=== PATIENT | male | born 1935 ===

== ENCOUNTER → 2017-02-04 | Outpatient (CLI) | payer MEDICARE, OTHER ==
[~2017-02-04] MED LIST: ALEVE220 MG PO; ASPIRIN LO-DOSE81 MG PO; CLARITIN10 MG PO; CORDARONE,PACE200 MG PO; ECOTRIN325 MG PO; FEOSOL325 MG PO; FLONASE 50 MCG/16 GM NOSE; FLUNISOLIDE25 ML NOSE; IMDUR60 MG PO; KLOR-CON 1010 MEQ PO; LASIX20 MG PO; LEVOTHROID (S100 MCG PO; LIPITOR80 MG PO; NORVASC2.5 MG PO; NORVASC5 MG PO; PLAVIX75 MG PO; PRADAXA150 MG PO; PRADAXA75 MG PO; PRILOSEC20 MG PO; RANEXA ER500 MG PO; THERAGRAN-M1 TAB PO; TYLENOL/COD#31 TAB PO; ULTRAM50 MG PO; VASOTEC2.5 MG PO; ZOCOR20 M1 PO
== END | disposition disaster alternative care site (69) ==
LOC: LCNC 09:11
DX: E03.9 Hypothyroidism, unspecified (principal)

== ENCOUNTER → 2017-02-13 | Emergency (ER) | payer MEDICARE, OTHER | END | disposition disaster alternative care site (69) | LOC: GAMB 12:25 | DX: R55 Syncope and collapse (principal) ==

== ENCOUNTER 2017-03-26 12:28 | Emergency (ER) | payer MEDICARE, OTHER ==
--- NOTE | ~2017-03-26 | ER ---
PATIENT'S NAME: TREVOR MORRISON [facility] AGE: 81 Y [address] ROOM: [place] [address] LOCATION: [facility] ADMIT DATE: 03/26/2017 ER/Outpatient Report DISCHARGE DATE: 03/26/2017 FAMILY PHYSICIAN: Physician, Unknown ATTENDING PHYSICIAN: Dmitri Tabares CHIEF COMPLAINT: Syncope. HISTORY OF PRESENT ILLNESS: The patient arrives by ambulance from [place] for evaluation of syncope. He was noted to have been having multiple falls lately. He was at work today since 9 o'clock. 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 He states that he may have fallen. It is unclear. He has had an episode where he passed out one time recently as well. No other associated history is available. The patient denies any other issues and denies any pain other than some pain in his lip. PAST MEDICAL HISTORY: Documented on the record and reviewed by me. SOCIAL HISTORY: Documented on the record and reviewed by me. MEDICATIONS: Documented on the record and reviewed by me. ALLERGIES: DOCUMENTED ON THE RECORD AND REVIEWED BY ME. REVIEW OF SYSTEMS: All systems were reviewed and negative except as noted in the HPI. PHYSICAL EXAMINATION: VITAL SIGNS: Blood pressure 115/55, pulse 68, respiratory rate 16, temperature 97.6, SpO2 is 91% on room air. GENERAL: Age-appropriate male in no obvious pain or distress, resting comfortably on the exam table. NEUROLOGIC: Awake and alert. GCS 50. No focal deficits. No asymmetry on exam. HEENT: Normocephalic and atraumatic. Eyes are PERRLA. Oropharynx clear with some bleeding, but no active lesions or repairable lacerations to the lower lip. Teeth are in normal repair. NECK: Supple. Trachea is midline. CHEST: Heart has regular rate and rhythm with no murmurs. PATIENT'S NAME: TREVOR MORRISON [facility] AGE: 81 Y [address] ROOM: [place] [address] LOCATION: [facility] ADMIT DATE: 03/26/2017 ER/Outpatient Report DISCHARGE DATE: 03/26/2017 FAMILY PHYSICIAN: Physician, Unknown ATTENDING PHYSICIAN: Dmitri Tabares LUNGS: Clear to auscultation bilaterally. No rhonchi, wheezes, or rales. ABDOMEN: Soft, nontender, and nondistended. No rebound or guarding. BACK: Grossly nontender to palpation throughout. No CVA tenderness. EXTREMITIES: Warm, well perfused with no pain to palpation. No pain with passive range of motion. SKIN: Warm, dry, and intact. LABORATORY DATA AND X-RAYS: EKG reveals sinus rhythm, rate of 70 with normal intervals and left axis deviation. No signs of acute ischemia or dysrhythmia. Lactate is 1.4. CMS is notable for creatinine of 2.1, baseline 1.5. GFR is 30. Troponin is below detectable threshold. Potassium 3.6. CBC without abnormality. INR is 1. Head CT and C-spine CT unremarkable per Radiology's read. Chest x-ray unremarkable per my read. IMPRESSION: Orthostatic syncope. EMERGENCY DEPARTMENT COURSE: The patient was seen and evaluated. Fluids were given. The patient was initially orthostatic. Repeat vital signs indicate resolution of his orthostasis. The patient does have azotemia. It has been a while since we have prior acute renal function. Estimation is that this is HEATHER, as the patient was orthostatic and hypovolemic, not consistent with sepsis. I recommended hospital evaluation; the patient declined. I explained his kidneys could be a risk. He stated he needed to go home and take care of his son. The patient was felt to have appropriate insight and comprehension of the risks and benefits. He will be discharged home with instructions to follow up with his primary care physician later this week for reevaluation. MD NARGIS NOE/rebel /[id number] d: 03/27/17 1620 t: 04/13/17 0853, OUTPATIENT REPORT
[~2017-03-26 12:28] MED LIST changes: -ULTRAM50 MG PO
[2017-03-26 13:07] LABS: BASOPHIL # 0.1 K/uL (0.0-0.2); BASOPHIL % 0.7 %; EOSINOPHIL # 0.3 K/uL (0.0-0.5); HEMATOCRIT 36.6 % (33.0-50.0); IMMATURE GRANULOCYTE % 0.4 %; LYMPHOCYTE # 1.8 K/uL (0.8-4.0); LYMPHOCYTE % 21.2 %; MCH 29.3 pg (27.0-34.0); MCHC 32.8 gm/dL (32.0-36.5); MCV 89.3 fl (83.0-98.0); MONOCYTE # 0.9 K/uL (0.0-1.0); MONOCYTE % 10.3 %; NEUTROPHIL # (ANC) 5.4 K/uL (1.4-9.0); NEUTROPHIL % 64.4 %; NRBC % 0 /100WBC (0-0.00); PLATELET COUNT 236 K/uL (150-450); RDW-CV 14.5 % (11.9-14.6); WBC 8.4 K/uL (4.0-11.0)
[2017-03-26 13:14] LABS: INR - (THERAPEUTIC) 0.99 (0.92-1.07); PROTIME 10.4 SECONDS (9.8-11.4); PTT 22 SECONDS (25-32)
[2017-03-26 13:30] LABS: ALK PHOS 106 IU/L (33-138); ALT 20 IU/L (12-78); ANION GAP 11.6 (10.0-19.0); AST 15 IU/L (10-40); BLOOD UREA NITROGEN 27 mg/dL (6-24); CALCIUM 7.9 mg/dL (8.5-10.5); CHLORIDE 108 mMol/L (96-110); CO2 26 mMol/L (22-32); CREATININE 2.1 mg/dL (0.6-1.3); ESTIMATED GFR (MDRD EQUATION) 30; POTASSIUM 3.6 mMol/L (3.7-5.1); SODIUM 142 mMol/L (135-145); TOTAL BILIRUBIN 0.3 mg/dL (0.0-1.5); TOTAL PROTEIN 6.2 g/dL (6.0-8.4)
== END 2017-03-26 14:23 | disposition disaster alternative care site (69) ==
LOC: GACC 12:28
PROVIDERS: Emergency Medicine
DX: R55 Syncope and collapse (principal)
CPT/HCPCS: J7030

== ENCOUNTER → 2017-03-26 | Outpatient (CLI) | payer MEDICARE, OTHER | END | disposition disaster alternative care site (69) | LOC: GAMB 12:01 | DX: R55 Syncope and collapse (principal); S01.511A Laceration without foreign body of lip, initial encounter; R29.6 Repeated falls; W19.XXXA Unspecified fall, initial encounter | CPT/HCPCS: A0425; A0427 ==

== ENCOUNTER 2017-04-12 04:24 | Emergency (ER) | payer MEDICARE, BC ==
--- NOTE | ~2017-04-12 | ER ---
[facility] 81 Y [address] ROOM: [place] [address] LOCATION: [facility] ADMIT DATE: 04/12/2017 ER/Outpatient Report DISCHARGE DATE: 04/12/2017 FAMILY PHYSICIAN: Vazquez Briceño MD ATTENDING PHYSICIAN: Valdo Garay Time of Arrival: 0424 hours. Time of Evaluation: 0424 hours. CHIEF COMPLAINT: Fall, head injury. HISTORY OF PRESENT ILLNESS: The patient is an 81-year-old male, who presents to the emergency department today with a fall and head injury. He reports he rolled out of bed and hit his head on the CPAP machine, that occurred just prior to arrival. He denies any loss of consciousness. No nausea or vomiting. It is on the left side of his forehead. Denies any pain, currently 0/10 in severity. Denies any fevers or chills, nausea or vomiting, diarrhea or constipation. No chest pain, no shortness of breath. PAST MEDICAL HISTORY: Coronary artery disease with stents, gastroesophageal reflux disease, dyslipidemia, paroxysmal atrial fibrillation, history of PE and DVT, history of syncope, chronic anticoagulation on Pradaxa. PAST SURGICAL HISTORY: Left heart catheterization with PTCA, colonoscopy, polypectomy, tonsillectomy, adenoidectomy, hip fracture, cardioversion, TURP, shoulder surgery. SOCIAL HISTORY: The patient is single, lives with his son here in [place]. History of remote tobacco use, quit in 1973. Denies any alcohol or illicit drug use. FAMILY HISTORY: A brother with PA. A brother with lung cancer. Sister with uterine cancer. ALLERGIES: NO KNOWN DRUG ALLERGIES. MEDICATIONS: Please see list. PRIMARY CARE DOCTOR: Vazquez Briceño MD. [facility]GE[facility] 81 Y [address] ROOM: [place] [address] LOCATION: [facility] ADMIT DATE: 04/12/2017 ER/Outpatient Report DISCHARGE DATE: 04/12/2017 FAMILY PHYSICIAN: Vazquez Briceño MD ATTENDING PHYSICIAN: Valdo Garay REVIEW OF SYSTEMS: All systems are reviewed by myself and are negative with the exception of those discussed in the HPI and past medical history. PHYSICAL EXAMINATION: VITAL SIGNS: Weight 89.9 kg, blood pressure 196/81, pulse 70, respiratory rate 16, temperature 98.2, oxygen saturation 99% on room air. GENERAL: The patient is an 81-year-old male, who appears stated age, in no acute distress at this time. HEENT: Head: Normocephalic. Does have evidence of trauma with a 4.0 cm laceration, is gaping to the left forehead just above the eye. Bleeding is controlled. Pupils are equal, round, and reactive to light and accommodation. Extraocular motions are intact. Nares are patent bilaterally. TMs are clear. Oropharynx is clear. NECK: Supple. There is no nuchal rigidity. No midline tenderness to palpation. No step-offs or deformities. CARDIOVASCULAR: Regular rate and rhythm. No murmurs, rubs, or gallops. LUNGS: Clear to auscultation bilaterally. No wheezes, rales, or rhonchi. ABDOMEN: Soft, nontender, and nondistended. No rebound, rigidity, or guarding. MUSCULOSKELETAL: The patient moves all 4 extremities. No bony tenderness to palpation. SKIN: Please see HEENT. Otherwise, no other rashes or lesions are noted. LABORATORY DATA AND X-RAYS: CT scan of the brain is obtained. It is reviewed by [facility]. There is no evidence of acute intracranial pathology. There is an area of scalp swelling in the left frontal region. There is no evidence of skull fracture. IMPRESSION: 1. Head injury, requiring a CT imaging. 2. A 4.0 cm laceration to the forehead of the face with simple repair. 3. Initial visit. EMERGENCY DEPARTMENT COURSE: The patient was brought back to the examination room. Seen and evaluated by myself. CT imaging is obtained as described above. I have discussed the risks and benefits of closure of the patient's wound. He does wish to proceed. 1% lidocaine with epinephrine is used for local infiltration. The wound is copiously irrigated with normal saline. It is evaluated by myself. I see no evidence of foreign body. 5-0 Ethilon is used in simple interrupted fashion to close the wound. There is good hemostasis, good cosmesis. Complications are none. I have discussed head injury precautions with the patient. I have discussed I would like the patient to follow up with Dr. PATIENT'S NAME: TREVOR MORRISON [facility] AGE: 81 Y [address] ROOM: [place] [address] LOCATION: [facility] ADMIT DATE: 04/12/2017 ER/Outpatient Report DISCHARGE DATE: 04/12/2017 FAMILY PHYSICIAN: Vazquez Briceño MD ATTENDING PHYSICIAN: Valdo Garay in 2 days for re-evaluation. The sutures are to be removed in 5 to 7 days. I have discussed return to care instructions including worsening symptoms or any other concerns to return to the emergency department as soon as possible. The patient is agreeable without further questions at this time. DISPOSITION: The patient discharged home in good condition. DO RYLIE BEJARANO/modl /[id number] d: 04/12/17 2347 t: 04/13/17 0221, OUTPATIENT REPORT
[~2017-04-12 04:24] MED LIST changes: -ULTRAM50 MG PO
== END 2017-04-12 05:21 | disposition disaster alternative care site (69) ==
LOC: GACC 04:24
PROC: 0HQ1XZZ Repair Face Skin, External Approach (ICD-10-PCS; principal; 2017-04-12)
DX: S09.90XA Unspecified injury of head, initial encounter (principal); S01.81XA Laceration without foreign body of other part of head, initial encounter; I25.10 Atherosclerotic heart disease of native coronary artery without angina pectoris; K21.9 Gastro-esophageal reflux disease without esophagitis; E78.5 Hyperlipidemia, unspecified; I48.0 Paroxysmal atrial fibrillation; Z79.01 Long term (current) use of anticoagulants; Z86.718 Personal history of other venous thrombosis and embolism; Z90.49 Acquired absence of other specified parts of digestive tract; Z90.79 Acquired absence of other genital organ(s); Z87.891 Personal history of nicotine dependence; Z79.899 Other long term (current) drug therapy; Z95.5 Presence of coronary angioplasty implant and graft; W19.XXXA Unspecified fall, initial encounter

== ENCOUNTER → 2017-04-12 | Outpatient (CLI) | payer MEDICARE, BC ==
[~2017-04-12] MED LIST changes: +ULTRAM50 MG PO
== END | disposition disaster alternative care site (69) ==
LOC: GAMB 04:07
DX: R55 Syncope and collapse (principal); S01.81XA Laceration without foreign body of other part of head, initial encounter; I48.2 Chronic atrial fibrillation; E03.9 Hypothyroidism, unspecified; K21.9 Gastro-esophageal reflux disease without esophagitis; R29.6 Repeated falls; Z79.899 Other long term (current) drug therapy; W19.XXXA Unspecified fall, initial encounter
CPT/HCPCS: A0425; A0429

== ENCOUNTER 2017-04-16 10:30 | Inpatient (IN) | payer MEDICARE, BC ==
[~2017-04-16] VITALS: Ht 180.3 cm; Wt 86.9 kg
--- NOTE | ~2017-04-16 | HP ---
[facility] 81 Y [address] ROOM: [place] [address] LOCATION: [facility] ADMIT DATE: 04/16/2017 History & Physical DISCHARGE DATE: FAMILY PHYSICIAN: ARTURO WHITLOCK MD ATTENDING PHYSICIAN: RINA WOLF DATE OF SERVICE: CHIEF COMPLAINT: Syncope. HISTORY OF PRESENT ILLNESS: An 81-year-old gentleman with a past medical history of multiple episodes of syncope; severe coronary artery disease with multiple stentings done in the past; history of atrial fibrillation, not on any long-term oral anticoagulation at this time, presented to the emergency department today when he had a syncopal episode at work, which was preceded by feeling of dizziness and he fell and did hit his head as well. He was doing okay in the emergency department and underwent recovery. He said he is not feeling dizzy anymore. He denied any headache, any chest pain, any shortness of breath, any abdominal pain, any constipation, any diarrhea; but did endorse having swelling in his legs. On further inquiry, he fell three days ago which was apparently he fell from his bed and hit his head and was in the emergency department with a laceration which was repaired at that point. It appears that he had multiple admissions of this syncopal episodes in the past and was diagnosed with orthostatic hypotension. He denied any shortness of breath or any diaphoresis at this point. REVIEW OF SYSTEMS: All other systems were reviewed and were negative, except those mentioned in the HPI. ALLERGIES: NO KNOWN DRUG ALLERGIES. HOME MEDICATIONS: Being reconciled right now. FAMILY HISTORY: Both parents were killed in a motor vehicle accident many years ago. Brother has heart disease as well as lung cancer. PAST SURGICAL HISTORY: Right carpal tunnel surgery, tonsillectomy, TURP, shoulder surgery. PATIENT'S NAME: TAMIKO [facility] AGE: 81 Y [address] ROOM: [place] [address] LOCATION: [facility] ADMIT DATE: 04/16/2017 History & Physical DISCHARGE DATE: FAMILY PHYSICIAN: ARTURO WHITLOCK MD ATTENDING PHYSICIAN: RINA WOLF PAST MEDICAL HISTORY: Hypertension; hyperlipidemia; history of coronary artery disease; history of atrial fibrillation, not on any oral anticoagulation; arthritis; gout; GERD; constipation; BPH; and hypothyroidism. SOCIAL HISTORY: Quit smoking long time ago. Denied any ongoing toxic habits. PHYSICAL EXAMINATION: VITAL SIGNS: Blood pressure is 116/70, heart rate 65, afebrile, respiratory rate of 16, saturating 100% on room air. GENERAL: No acute distress. Alert and oriented x3. HEENT: Head: Laceration with repair is noted on the left frontal head. Eyes: Nonicteric. No pallor. Oropharynx: Moist mucous membranes. CARDIOVASCULAR: S1, S2. No murmurs, gallops, or rubs. LUNGS: Clear to auscultation bilaterally. ABDOMEN: Soft, nontender, and nondistended. Bowel sounds present. EXTREMITIES: Reveal +2 extremity edema in both extremities. NEUROLOGIC: Cranial nerves 2 through 12 intact. No motor or sensory deficit noted. PSYCHIATRIC: Normal affect, mood, and speech. SKIN: No bruises or blemishes noted. DIAGNOSTIC STUDIES: EKG done in the emergency department showed sinus bradycardia with heart rates in the [address]-T wave changes. First set of troponin was negative. Lab work was done in the emergency department and was significant for creatinine of 1.8 and potassium was 3.6. Chest x-ray was done in the emergency department. It did not reveal any acute cardiopulmonary processes. ASSESSMENT AND PLAN: 1. Syncopal episode. 2. History of coronary artery disease with multiple interventions. 3. Acute kidney injury on chronic kidney disease, stage 3. 4. History of pulmonary embolism postoperatively. 5. Atrial fibrillation, currently in sinus without any long-term oral anticoagulation. 6. Gout. 7. Gastroesophageal reflux disease. 8. Hypokalemia. 9. Benign prostatic hypertrophy. PATIENT'S NAME: TREVOR MORRISON [facility] AGE: 81 Y [address] ROOM: [place] [address] [facility] ADMIT DATE: 04/16/2017 History & Physical DISCHARGE DATE: FAMILY PHYSICIAN: ARTURO WHITLOCK MD ATTENDING PHYSICIAN: RINA WOLF 10. Hypothyroidism. We are going to admit this patient at this point. A CAT scan of the head will be obtained. We will put the patient on telemetry. We will get an echocardiography as well. We will obtain orthostatic vitals. We will monitor cardiac enzymes. Based on the orthostatic vitals, we will decide to hydrate versus diurese this patient. Given this patient had been in the emergency department and in the hospital multiple times for the syncopal episode, I think at this point tilt-table testing is warranted and if positive for high orthostatic hypotension, we should put him on some oral medications like midodrine. Further management will depend on his course as well as his imaging and orthostatic vitals. We will follow this patient. DVT prophylaxis with subcu heparin. MD JOSE ALFREDO MARTINS/rebel /[id number] D: [id number] T: [id number] HISTORY & PHYSICAL
--- NOTE | ~2017-04-16 | CON ---
PATIENT'S NAME: TREVOR MORRISON [facility] AGE: 81 Y [address] ROOM: [place] [address] LOCATION: [facility] ADMIT DATE: 04/16/2017 Consultation DISCHARGE DATE: FAMILY PHYSICIAN: VAZQUEZ WHITLOCK MD ATTENDING PHYSICIAN: RINA MAGALLANES REFERRING PHYSICIAN: Yony Mcmanus MD CARDIOLOGY CONSULTATION FAMILY PHYSICIAN: aVzquez Whitlock MD REFERRING PHYSICIAN: Rina Magallanes MD REASON FOR CONSULTATION: Syncope. HISTORY OF PRESENT ILLNESS: This is an 81-year-old gentleman well known to Dr. Mcmanus with a history of paroxysmal atrial fibrillation, hypertension, and hypothyroidism. He presented to the emergency department on the day of admission, after a syncopal episode at work. He reports that he was feeling a little bit dizzy and he fell and hit his head. He was doing okay in the Emergency Department after the fall. He denies feeling any palpitations. He denied shortness of breath. He reports that he fell three days ago rolling out of bed and hitting his head, and at that time, he had a laceration and that was repaired. He denies any problems with exertional chest pain. He denies orthopnea, PND, or increased peripheral edema. He admits that he does not drink very much water throughout the day. He is sleeping well at night and uses a CPAP every night. PAST MEDICAL HISTORY: 1. 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 2. Paroxysmal atrial fibrillation with DC cardioversion in 2005. 3. Hyperlipidemia. 4. High-risk medication - amiodarone. 5. History of pulmonary embolus with DVT. 6. Leg edema, on amlodipine. 7. History of syncope wearing a loop recorder in the past with explant. 8. Essential hypertension. 9. Sinus bradycardia. 10. Long-term anticoagulation - Pradaxa currently on hold while on Plavix. 11. Remote history of LV dysfunction. Last EF was 55%. 12. Obstructive sleep apnea, using CPAP. 13. Chronic renal insufficiency. [facility] 81 Y [address] ROOM: [place] [address] [facility] ADMIT DATE: 04/16/2017 Consultation DISCHARGE DATE: FAMILY PHYSICIAN: VAZQUEZ WHITLOCK MD ATTENDING PHYSICIAN: RINA MAGALLANES 14. Gastroesophageal reflux disease. PAST SURGICAL HISTORY: 1. Transurethral resection of the prostate. 2. T and A. 3. Hip fracture in 1983. 4. Left heart catheterization and PCI in 1996. 5. Reveal placement, removed on 11/01/2005. 6. Colonoscopy with polypectomy in 2003. 7. Left heart catheterization, PTCI with stent LAD on 04/07/2005. 8. Left heart catheterization with PCI, LCS and DC cardioversion in 05/2005. 9. Left heart catheterization with PCI, LAD on 12/17/2005. 10. Left heart catheterization in 10/2006. 11. Shoulder surgery in 2006. 12. Left heart catheterization, PTCI with stent RCA in 01/2010. 13. Right carpal tunnel surgery in 01/2010. 14. Left heart catheterization, PTCI with stent ostial RCA on 11/01/2011. 15. Left heart catheterization, PTCI with stent RCA and ostium of posterior descending artery in 02/2013. 16. Left heart catheterization, PTCI with stent LCX on 02/18/2014. 17. Left heart catheterization with stent status post PCI mid RCA with drug- eluting stent on 07/03/2016. ALLERGIES: NONE TO MEDICATIONS. CURRENT MEDICATIONS: 1. Amiodarone 200 mg daily. 2. Aspirin 81 mg every day. 3. Atorvastatin 80 mg every day. 4. Centrum Silver 1 tablet daily. 5. Enalapril 2.5 mg b.i.d. 6. Feosol (ferrous sulfate) 325 mg once a day. 7. Flonase 50 mcg once a day. 8. Furosemide 40 mg 1 tablet daily. 9. Isosorbide mononitrate 60 mg extended release, 1 tablet daily. 10. Levothyroxine 100 mcg p.o. every day. 11. Loratadine 10 mg once a day. 12. Nitrostat 0.4 mg sublingual p.r.n. 13. Plavix 75 mg once a day. 14. Prilosec 20 mg delayed release 1 capsule daily. 15. Tramadol 50 mg p.r.n. every 6 hours. 16. Lasix 20 mg p.o. every day. SOCIAL HISTORY: PATIENT'S NAME: TREVOR MORRISON [facility] AGE: 81 Y [address] ROOM: [id number] [place], [place] [address] [facility] ADMIT DATE: 04/16/2017 Consultation DISCHARGE DATE: FAMILY PHYSICIAN: VAZQUEZ WHITLOCK MD ATTENDING PHYSICIAN: RINA MAGALLANES He is a former smoker. Smoked a pack cigarettes a day for 20 years, quit in 1973. He does not use alcohol. He continues to work at [employer]. He is . He does have a son who is very attentive. FAMILY HISTORY: Father was killed in a motor vehicle accident in 194. He had "heart troubles." Mother in an MVA in 1942 as well. Siblings; he has a brother with an OH. Another brother with lung cancer. Sister with uterine cancer. All three are . He has one brother with stage IV lung cancer currently. REVIEW OF SYSTEMS: GENERAL: Right now, he feels really good. There is no report of fevers, chills, or sweats. No weight loss or weight gain. HEENT: Head; no history of headache. He does have a laceration to the left frontal region of his head. There is no erythema or edema, and no draining. CV: As per HPI. PULMONARY: No history of cough or hemoptysis. GASTROINTESTINAL: Negative for nausea, vomiting, or diarrhea. No melena or hematochezia. GENITOURINARY: Negative for dysuria, polyuria. No nocturia. ENDOCRINE: No history of hypoglycemia. He is on Synthroid replacement therapy. NEUROLOGIC: He has had several syncopal episodes, but he denies any problems with numbness or tingling or stroke-like symptoms. DERMATOLOGIC: No rash or skin lesions that are concerning. HEMATOLOGIC: He had been on ferrous sulfate in the past for chronic anemia. MUSCULOSKELETAL: He denies arthralgias, myalgias. He does report intermittent leg edema. PHYSICAL EXAMINATION: VITAL SIGNS: He is 70 inches tall. He weighs 202 pounds. BMI 29.1. Orthostatic blood pressures are lying 188/84, sitting 160/84, and standing 150/79, and heart rate is not recorded. He is afebrile. GENERAL: He is very pleasant, well nourished, well developed male who appears to be in no acute distress. HEENT: Normocephalic and atraumatic. HEENT: Pupils equal, round, and react briskly to light. EOMs are intact. NECK: Soft and supple. No lymphadenopathy or thyromegaly. JVD is flat. CARDIOVASCULAR: Regular with a normal S1 and S2 with a grade 2 to 3/6 aortic systolic ejection murmur. RESPIRATORY: Lung sounds are clear, with good symmetrical chest rise. There is no evidence of wheezes or rales or rhonchi. GASTROINTESTINAL: Abdomen is soft. Bowel sounds are present in all 4 quadrants. No hepatosplenomegaly is noted. PATIENT'S NAME: TREVOR MORRISON [facility] AGE: 81 Y [address] ROOM: [address] [address] [facility] ADMIT DATE: 04/16/2017 Consultation DISCHARGE DATE: FAMILY PHYSICIAN: VAZQUEZ WHITLOCK MD ATTENDING PHYSICIAN: RINA MAGALLANES EXTREMITIES: No peripheral edema. No clubbing and no cyanosis. Distal pulses are 2+ throughout. NEUROLOGIC: He is alert and oriented. Motor and sensory exam are grossly intact. He is steady on his feet when he is up. DERMATOLOGIC: He does have a small wound noted to the left upper frontoparietal region of his head that is well approximated without erythema or edema. PSYCHIATRIC: Mood and affect are pleasant. LABORATORY DATA: BUN was 16, creatinine 1.4, it had been 1.9. Sodium 144, potassium 4.0. Hemoglobin was 12.1. He had a V/Q scan showing low probability for PE. His cardiac enzymes are negative. ASSESSMENT: 1. Syncope. We will check a TSH, and repeat orthostatic blood pressures with documentation of the heart rate as well. He did drop about 28 points. We would recommend holding antihypertensives at this time. 2. Coronary artery disease. There is no report of exertional chest pain. Angina precautions were reviewed. 3. Obstructive sleep apnea. He is to continue using his CPAP at night. 4. Paroxysmal atrial fibrillation. He is on amiodarone. He will continue that medication. We will not add his Pradaxa back until he is off the Plavix. 5. High-risk medications in the form of amiodarone as well as Plavix. He will continue both medications. The Assessment and Plan, History of Present Illness, and Physical Examination are per Dr. Yony Mcmanus. Further recommendations will be forthcoming as information becomes available. NELLIE LEONARD APRN FOR MD HUMA MARROQUIN/simonl /[id number] d: 04/19/17 1513 t: 04/29/17 1159, CONSULTATION REPORT
--- NOTE | ~2017-04-16 | ENPV ---
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 FINDINGS: There is mild common carotid intimal thickening bilaterally and mild atherosclerotic plaque around the carotid bifurcations bilaterally. Flow velocities are within normal limits. There is antegrade flow in the vertebral arteries bilaterally. IMPRESSION: 1. MILD BILATERAL CAROTID ASVD. NO SIGNIFICANT STENOSIS. Procedure Type of Study: Cerebral:Carotid, Carotid Doppler Bilateral. Appropriate Use Criteria:9 Allergies - No known allergies. Patient Status:Routine. Study Location:Inpatient Portable. Technical Quality:Adequate visualization. Velocities are measured in cm/s ; Diameters are measured in cm Carotid Right Measurements Carotid Left Measurements + +--------+--------+ + + + +--------+- -------+ + + !Location !PSV !EDV !Angle !%Stenosis ! !Location !PSV !E DV !Angle !%Stenosis ! + +--------+--------+ + + + +--------+- -------+ + + !Prox CCA !62 !2 !48 !1-39% ! !Prox CCA !93 !1 2 !42 !1-39% ! + +--------+--------+ + + + +--------+- -------+ + + !Dist CCA !57 !8 !48 !1-39% ! !Dist CCA !62 !5 !42 !1-39% ! + +--------+--------+ + + + +--------+- -------+ + + !Prox ICA !62 !9 !48 !40-59% ! !Prox ICA !49 !9 !42 !1-39% ! + +--------+--------+ + + + +--------+- -------+ + + !Mid ICA !57 !12 !48 !1-39% ! !Mid ICA !61 !1 2 !42 !1-39% ! + +--------+--------+ + + + +--------+- -------+ + + !Dist ICA !78 !13 !2 !1-39% ! !Dist ICA !48 !1 1 !42 !1-39% ! + +--------+--------+ + + + +--------+- -------+ + + !Prox ECA !70 !69 !48 ! ! !Prox ECA !70 ! !42 ! ! + +--------+--------+ + + + +--------+- -------+ + + !Vertebral !41 ! !40 ! ! !Vertebral !46 ! !42 ! ! + +--------+--------+ + + + +--------+- -------+ + + - There is antegrade vertebral flow noted on the right side. - There is antegrade verte bral flow noted on the left side. - Add'l Measurements:Subclavian PRV 119 cm/sICAPSV/CCAPSV - Add'l Measurements:Subcl noris PRV 52 cm/sICAPSV/CCAPSV 1.27.ICAEDV/CCAEDV 8.09. 0.65.ICAEDV/CCAEDV 1. Signature dtt: Arjun Willson dtd: 04/18/17 1343 Physician Self Edit
--- NOTE | ~2017-04-16 | DS ---
PATIENT'S NAME: TREVOR MORRISON [facility] AGE: 81 Y [address] ROOM: [address] [place], [place] [address] LOCATION: GPCU ADMIT DATE: 04/16/2017 Discharge Summary DISCHARGE DATE: 04/19/2017 FAMILY PHYSICIAN: Vazquez Briceño MD ATTENDING PHYSICIAN: Julius Magallanes CORRECTED PATIENT ACCOUNT INFORMATION 04/22/17 AO FINAL DIAGNOSES: 1. Syncope, resolved. 2. Orthostatic hypotension. 3. Paroxysmal atrial fibrillation. 4. History of coronary artery disease, status post stent. 5. Hypothyroidism. CONSULTATIONS: Cardiology, Dr. Yony Mcmanus. PROCEDURES: None. REASON FOR ADMISSION: This is an 81-year-old male, who presented with a syncopal episode. The patient has been having syncopal episodes frequently at work. He was evaluated in the ER and then further admitted for further evaluation and management of syncopal episode and orthostatic hypotension. Please see Dr. Magallanes's admission H and P for further details. DIAGNOSTIC STUDIES: A carotid duplex study was done that showed mild bilateral carotid ASVD with no significant stenosis. Serial cardiac enzymes were done. Troponin I was normal. CPK was normal. ProBNP 1269. Serial CBCs were done, showed essentially normal white count, hemoglobin, hematocrit, and platelet levels. The patient had serial BMPs done. Electrolytes were within normal range. The patient's creatinine was 1.9 on admission. At the time of discharge, it was stable at 1.3. The patient's GFR was 34 on admission and 53 at the time of discharge. PT/INR and PTT normal. On admission TSH 3.68, procalcitonin level less than 0.05. D-dimer elevated at 4.23. The patient had a V/Q scan for elevated D-dimer that showed low probability for pulmonary embolism. CT head, no contrast was done, admission for syncope and showed stable evidence of acute intracranial abnormality. 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 Chest x- ray was done on admission for chest pain and showed no evidence of acute cardiopulmonary disease. HOSPITAL COURSE: This is an 81-year-old male, who presented with recurrent syncopal episode. The patient was thought to have orthostatic hypotension at that point of time. Cardiology was consulted. The patient underwent an evaluation and evaluation was basically normal. The patient's blood pressure pills were then stopped. The patient's syncope resolved. He was ambulating in the hallway. He continued to do well. There was concern that the patient PATIENT'S NAME: TREVOR MORRISON [facility] AGE: 81 Y [address] ROOM: [place] [address] LOCATION: GPCU ADMIT DATE: 04/16/2017 Discharge Summary DISCHARGE DATE: 04/19/2017 FAMILY PHYSICIAN: Vazquez Briceño MD ATTENDING PHYSICIAN: Julius Magallanes may have an abnormal heart rhythm. He has a history of paroxysmal atrial fibrillation. Cardiology will follow him up outpatient for possible need for loop recorder. The patient continued to do well and was discharged to home. He was advised to seek an alternate line of work. I had a detailed discussion with the patient. He stated that given his work, he can sit for about 5-10 minutes every hour. I stressed upon the patient that if he is not able to work as much that he may need to be reassigned to a different duty. The patient will discuss that with his work employer. DISCHARGE INSTRUCTIONS: The patient is discharged on a cardiac diet with activity as tolerated. He was advised to use compression stocking at work. Follow up with Dr. Yony Mcmanus in 1 to 2 weeks' time. The patient's Vasotec and Imdur are currently being held based on Cardiology recommendations. Cardiology will discuss with the patient in outpatient setting for possible need for loop recorder. Fall precautions to be observed. The patient to use a walker for assistance. Follow up with PCP, Dr. Vazquez Briceño in 4-5 days' time. PCP to check a CBC and a BMP. Regular BP check advised. DISCHARGE MEDICATIONS: 1. Amiodarone 200 mg p.o. daily. 2. Aspirin 81 mg p.o. daily. 3. Lipitor 80 mg p.o. at bedtime. 4. Plavix 75 mg p.o. daily. 5. Ferrous sulfate 325 mg p.o. daily. 6. Levothyroxine 100 mcg p.o. daily. 7. Multivitamin 1 tablet p.o. daily. 8. Prilosec 20 mg p.o. daily. 9. Tramadol 50 mg p.o. q.6 hours p.r.n. pain. 10. Claritin 10 mg p.o. daily p.r.n. allergies. 11. Flonase 50 mcg per puff nasal spray, 1 spray nasally every day p.r.n. allergy, 1 spray in each nostril. During this admission, the patient's antihypertensive medication including Imdur, Vasotec, and Lasix were held based on Cardiology recommendations. This patient was managed by hospitalist and cardiology teams during this admission. ASYA CHAVEZ MD MT/rbeel PATIENT'S NAME: TREVOR MORRISON [facility] AGE: 81 Y [address] ROOM: [place] [address] [facility] AD[facility] DATE: 04/16/2017 Discharge Summary DISCHARGE DATE: 04/19/2017 FAMILY PHYSICIAN: Vazquez Briceño MD ATTENDING PHYSICIAN: Julius Magallanes /[id number] CC: Vazquez Briceño MD CORRECTED PATIENT ACCOUNT INFORMATION 04/22/17 AO d: 04/20/17 1550 t: 04/25/17 2134, DISCHARGE SUMMARY
--- NOTE | ~2017-04-16 | ER ---
PATIENT'S NAME: TAMIKO [facility] AGE: 81 Y [address] ROOM: [place] [address] LOCATION: GPCU ADMIT DATE: 04/16/2017 ER/Outpatient Report DISCHARGE DATE: FAMILY PHYSICIAN: VAZQUEZ WHITLOCK MD ATTENDING PHYSICIAN: RINA MAGALLANES Time of Arrival: 10:30. Time of Evaluation: 10:30. CHIEF COMPLAINT: Syncope. HISTORY OF PRESENT ILLNESS: The patient is an 81-year-old male who presents to the emergency department today with chief complaint of syncope. The patient was working at [employer]. At that time, he became dizzy, sat down, and passed out. He was out for a short second. Denies any fevers or chills. He did have some nausea. No vomiting. Denies any diarrhea or constipation. No troubles urinating. The patient did have some chest pain after he arrived in the emergency department that lasted for a short second and was sharp. Denies any shortness of breath. No headache. The patient was recently seen and evaluated for another syncopal episode. Recommendations have been made for admission to the hospital. The patient refused at that time. The patient had previous fall on the . He has had the previous syncopal episode on the 26 of March. PAST MEDICAL HISTORY: Coronary artery disease with stents, gastroesophageal reflux disease, dyslipidemia, paroxysmal atrial fibrillation, history of PE and DVT, history of syncope, chronic anticoagulation on Pradaxa. PAST SURGICAL HISTORY: Left heart catheterization with PTCA, colonoscopy, polypectomy, tonsillectomy, adenoidectomy, hip fracture, cardioversion, TURP, shoulder surgery. SOCIAL HISTORY: The patient is single, lives in [place] with his son. Remote history of tobacco use, quit in 1973. Denies any alcohol or illicit drug use. FAMILY HISTORY: A brother with [place]. Brother with lung cancer. Sister with uterine cancer. ALLERGIES: NO KNOWN DRUG ALLERGIES. MEDICATIONS: PATIENT'S NAME: [facility] AGE: 81 Y [address] ROOM: [place] [address] LOCATION: GPCU ADMIT DATE: 04/16/2017 ER/Outpatient Report DISCHARGE DATE: FAMILY PHYSICIAN: VAZQUEZ WHITLOCK MD ATTENDING PHYSICIAN: RINA MAGALLANES Please see list. PRIMARY CARE DOCTOR: Vazquez Whitlock MD. REVIEW OF SYSTEMS: All systems are reviewed by myself and are negative with the exception of those discussed in HPI and past medical history. PHYSICAL EXAMINATION: VITAL SIGNS: Weight 90.4 kg, blood pressure 122/59, pulse 65, respiratory rate 16, temperature 97.5, oxygen saturation 98% on room air. GENERAL: The patient is an 81-year-old male, appears stated age, in no acute distress. HEENT: Head: Normocephalic. Does have evidence of trauma with sutures noted to the left forehead which are clean, dry, and intact. Pupils are equal, round, and reactive to light and accommodation. Extraocular motions are intact. Nares are patent bilaterally. TMs are clear. Oropharynx is clear. NECK: Supple. There is no nuchal rigidity. No midline tenderness to palpation. CARDIOVASCULAR: Bradycardic. No murmurs, rubs, or gallops. LUNGS: Clear to auscultation bilaterally. No wheezes, rales, or rhonchi. ABDOMEN: Soft, nontender, and nondistended. No rebound, rigidity, or guarding. MUSCULOSKELETAL: The patient moves all 4 extremities. No bony tenderness to palpation is noted. NEUROLOGICAL: GCS 15. Alert and oriented x4. Cranial nerves 2 through 12 are grossly intact. SKIN: Warm and dry. There is no rashes or lesions noted. LABORATORY DATA AND X-RAYS: EKG is obtained, is interpreted by myself at 10:50, shows sinus bradycardia with a rate of 59, left axis deviation, normal interval. T-wave inversion and/or flattening in [address] elevation or ST depression. CBC is normal. Coags normal. CMP is unremarkable except for potassium 3.6, creatinine 1.9, calcium 7.7. LFTs normal. Magnesium is normal. CK is normal. CK-MB is normal. Troponin is normal. ProBNP is 1269. Chest x-ray shows no acute process. IMPRESSION: 1. Syncopal episode with history of previous syncopal episodes. 2. Elevated proBNP. 3. Renal insufficiency. 4. Initial visit. 5. Chest pain. PATIENT'S NAME: TREVOR MORRISON [facility] AGE: 81 Y [address] ROOM: [id number] [place] [id number] [facility] ADMIT DATE: 04/16/2017 ER/Outpatient Report DISCHARGE DATE: FAMILY PHYSICIAN: VAZQUEZ WHITLOCK MD ATTENDING PHYSICIAN: RINA MAGALLANES EMERGENCY DEPARTMENT COURSE: The patient was brought back to the examination room. Seen and evaluated by myself. IV is established. Laboratory analysis and imaging are obtained as described above. The patient is given an L of normal saline IV. The workup is obtained. I have discussed the results of laboratory analysis and imaging with the patient. The patient is bradycardic, is not hypoxic. I do feel low risk of DVT PE. The patient denies any headache. Does report that he was able to get down to the ground before he completely passed out. Thus, CT imaging was not performed as the patient does have normal neurological exam without headache at this time. I have discussed the results with the patient. I have recommended admission to the hospital as the patient has had multiple syncopal episodes and elevation of proBNP. We will need further evaluation treatment and management for these multiple syncopal episodes. He did have a short episode of chest pain as well. I did discuss the case with Dr. Magallanes. He has seen and evaluated the patient down here in the emergency department and does agree to accept the patient for further evaluation, treatment, and management. DISPOSITION: The patient was admitted under the care of Hospitalist Service and Dr. Magallanes in stable condition. DO RYLIE BEJARANO/simonl /[id number] d: 04/17/17 0006 t: 04/20/17 0641, OUTPATIENT REPORT
[~2017-04-16 10:30] MED LIST changes: -ULTRAM50 MG PO
[2017-04-16 10:47] LABS: BASOPHIL # 0.1 K/uL (0.0-0.2); BASOPHIL % 0.9 %; EOSINOPHIL # 0.5 K/uL (0.0-0.5); EOSINOPHIL % 5.5 %; HEMATOCRIT 37.2 % (33.0-50.0); HEMOGLOBIN 12.4 g/dL (11.0-16.0); IMMATURE GRANULOCYTE # 0.1 K/uL (0.0-0.3); IMMATURE GRANULOCYTE % 0.6 %; LYMPHOCYTE # 1.6 K/uL (0.8-4.0); LYMPHOCYTE % 18.8 %; MCHC 33.3 gm/dL (32.0-36.5); MCV 90.1 fl (83.0-98.0); MONOCYTE # 0.7 K/uL (0.0-1.0); MONOCYTE % 8.2 %; MPV 9.9 fl (9.4-12.4); NEUTROPHIL # (ANC) 5.8 K/uL (1.4-9.0); NRBC % 0 /100WBC (0-0.00); PLATELET COUNT 217 K/uL (150-450); RBC 4.13 M/uL (3.50-5.50); RDW-CV 14.4 % (11.9-14.6); WBC 8.7 K/uL (4.0-11.0)
[2017-04-16 10:57] LABS: INR - (THERAPEUTIC) 1.01 (0.92-1.07); PROTIME 10.6 SECONDS (9.8-11.4); PTT 25 SECONDS (25-32)
[2017-04-16 11:06] LABS: ALBUMIN 3.1 gm/dL (3.5-5.0); ALK PHOS 107 IU/L (33-138); ALT 19 IU/L (12-78); ANION GAP 11.6 (10.0-19.0); AST 17 IU/L (10-40); BLOOD UREA NITROGEN 18 mg/dL (6-24); CALCIUM 7.7 mg/dL (8.5-10.5); CHLORIDE 107 mMol/L (96-110); CO2 27 mMol/L (22-32); CPK 111 IU/L (35-332); CREATININE 1.9 mg/dL (0.6-1.3); ESTIMATED GFR (MDRD EQUATION) 34; MAGNESIUM 2.2 mg/dL (1.8-2.6); POTASSIUM 3.6 mMol/L (3.7-5.1); SODIUM 142 mMol/L (135-145); TOTAL PROTEIN 6.2 g/dL (6.0-8.4)
[2017-04-16 11:07] LABS: TOTAL BILIRUBIN 0.4 mg/dL (0.0-1.5)
[2017-04-16 13:32] LABS: CPK 221 IU/L (35-332)
[2017-04-17 04:06] LABS: BASOPHIL # 0.1 K/uL (0.0-0.2); BASOPHIL % 1.1 %; EOSINOPHIL # 0.4 K/uL (0.0-0.5); EOSINOPHIL % 5.7 %; HEMOGLOBIN 12.1 g/dL (11.0-16.0); IMMATURE GRANULOCYTE % 0.2 %; LYMPHOCYTE % 30.3 %; MCH 29.3 pg (27.0-34.0); MCHC 32.7 gm/dL (32.0-36.5); MCV 89.6 fl (83.0-98.0); MONOCYTE # 0.9 K/uL (0.0-1.0); NEUTROPHIL # (ANC) 3.3 K/uL (1.4-9.0); NEUTROPHIL % 49.7 %; NRBC % 0 /100WBC (0-0.00); PLATELET COUNT 208 K/uL (150-450); RBC 4.13 M/uL (3.50-5.50); RDW-CV 14.5 % (11.9-14.6); WBC 6.6 K/uL (4.0-11.0)
[2017-04-17 04:16] LABS: CALCIUM 7.9 mg/dL (8.5-10.5); CREATININE 1.4 mg/dL (0.6-1.3)
[2017-04-18 13:03] LABS: ANION GAP 12.8 (10.0-19.0); BLOOD UREA NITROGEN 16 mg/dL (6-24); CALCIUM 8.2 mg/dL (8.5-10.5); CHLORIDE 107 mMol/L (96-110); CO2 25 mMol/L (22-32); CPK 185 IU/L (35-332); CREATININE 1.2 mg/dL (0.6-1.3); POTASSIUM 3.8 mMol/L (3.7-5.1); SODIUM 141 mMol/L (135-145)
[2017-04-18 13:05] LABS: ESTIMATED GFR (MDRD EQUATION) 58
[2017-04-19 05:35] LABS: BASOPHIL # 0.1 K/uL (0.0-0.2); EOSINOPHIL # 0.5 K/uL (0.0-0.5); HEMOGLOBIN 12.5 g/dL (11.0-16.0); IMMATURE GRANULOCYTE % 0.3 %; LYMPHOCYTE # 2.1 K/uL (0.8-4.0); LYMPHOCYTE % 29.9 %; MCH 29.8 pg (27.0-34.0); MCHC 33.8 gm/dL (32.0-36.5); MCV 88.3 fl (83.0-98.0); MONOCYTE # 0.9 K/uL (0.0-1.0); MONOCYTE % 12.8 %; MPV 10.1 fl (9.4-12.4); NEUTROPHIL # (ANC) 3.4 K/uL (1.4-9.0); NRBC % 0 /100WBC (0-0.00); PLATELET COUNT 204 K/uL (150-450); RBC 4.19 M/uL (3.50-5.50); RDW-CV 14.4 % (11.9-14.6); WBC 6.9 K/uL (4.0-11.0)
[2017-04-19 05:52] LABS: CALCIUM 8.1 mg/dL (8.5-10.5); CREATININE 1.3 mg/dL (0.6-1.3)
[2017-04-19] MEDS ORDERED: ULTRAM50 MG PO (16:41)
== END 2017-04-19 17:16 | disposition disaster alternative care site (69) | DRG 312 ==
LOC: GACC 10:30 → GPCU 15:59
PROVIDERS: Emergency Medicine; Family Medicine; ADMIT Internal Medicine
DX: I95.1 Orthostatic hypotension (principal); N17.9 Acute kidney failure, unspecified; L89.313 Pressure ulcer of right buttock, stage 3; I48.0 Paroxysmal atrial fibrillation; L89.323 Pressure ulcer of left buttock, stage 3; E87.6 Hypokalemia; E03.9 Hypothyroidism, unspecified; R60.0 Localized edema; M10.9 Gout, unspecified; E78.5 Hyperlipidemia, unspecified; G47.33 Obstructive sleep apnea (adult) (pediatric); K21.9 Gastro-esophageal reflux disease without esophagitis; I25.10 Atherosclerotic heart disease of native coronary artery without angina pectoris; I12.9 Hypertensive chronic kidney disease with stage 1 through stage 4 chronic kidney disease, or unspecified chronic kidney disease; N18.9 Chronic kidney disease, unspecified; I25.2 Old myocardial infarction; Z79.82 Long term (current) use of aspirin; Z79.02 Long term (current) use of antithrombotics/antiplatelets; Z86.718 Personal history of other venous thrombosis and embolism; Z86.711 Personal history of pulmonary embolism; Z95.5 Presence of coronary angioplasty implant and graft; Z91.81 History of falling
CPT/HCPCS: A9539; A9540; J1644; J2001; J7030

== ENCOUNTER → 2017-04-16 | Outpatient (CLI) | payer MEDICARE, BC ==
[~2017-04-16] MED LIST changes: +ULTRAM50 MG PO
== END | disposition disaster alternative care site (69) ==
LOC: GAMB 10:07
DX: R55 Syncope and collapse (principal); I48.2 Chronic atrial fibrillation; I95.9 Hypotension, unspecified; R53.83 Other fatigue; Z79.02 Long term (current) use of antithrombotics/antiplatelets; Z72.820 Sleep deprivation
CPT/HCPCS: A0425; A0429

== ENCOUNTER → 2017-05-05 | Outpatient (CLI) | payer MEDICARE, BC ==
[~2017-05-05] MED LIST changes: +ULTRAM50 MG PO
== END ==
LOC: LBOND 16:00
DX: L89.312 Pressure ulcer of right buttock, stage 2 (principal); R68.89 Other general symptoms and signs

== ENCOUNTER → 2017-07-19 | Outpatient (CLI) | payer MEDICARE, BC, OTHER ==
[2017-07-19 15:30] LABS: ALBUMIN 3.3 gm/dL (3.5-5.0); ANION GAP 10.1 (10.0-19.0); CALCIUM 7.9 mg/dL (8.5-10.5); CREATININE 1.4 mg/dL (0.6-1.3); MAGNESIUM 2.4 mg/dL (1.8-2.6); PHOSPHORUS 2.8 mg/dL (2.5-4.9); POTASSIUM 4.1 mMol/L (3.7-5.1); TOTAL PROTEIN 6.7 g/dL (6.0-8.4)
[2017-07-19 15:31] LABS: TOTAL BILIRUBIN 0.5 mg/dL (0.0-1.5)
== END ==
LOC: LCNC 14:51
PROVIDERS: Internal Medicine Interventional Cardiology
DX: R60.0 Localized edema (principal); E03.9 Hypothyroidism, unspecified; Z79.899 Other long term (current) drug therapy